=== PATIENT | female | born 1995 ===

== ENCOUNTER 2021-04-04 13:57 | Emergency (ER) | payer MEDICAID ==
[~2021-04-04] VITALS: Ht 165.1 cm; Wt 82.0 kg
[2021-04-04 13:57] VITALS: BP 112/70
== END 2021-04-04 15:25 | disposition home or self-care (01) ==
LOC: ER 13:58
DX: J06.9 Acute upper respiratory infection, unspecified (principal); Z20.822 Contact with and (suspected) exposure to COVID-19
CPT/HCPCS: 87635; 99283; C9803